=== PATIENT | female | born 1935 | race Caucasian/White ===

== ENCOUNTER 2016-12-15 17:05 | Emergency (ER) | payer OTHER ==
--- NOTE | ~2016-12-15 | EKG ---
PATIENT: ANDERS RODRIGEZ UNIT #: [id number] Ventricular Rate: 95 BPM Atrial Rate: 95 BPM P-R Interval: 118 ms QRS Duration: 82 ms Q-T Interval: 356 ms QTC Calculation(Bezet): 447 ms P Unity: 59 degrees Calculated R Unity: 62 degrees Calculated T Unity: 49 degrees Diagnosis Line: Sinus rhythm with Premature atrial complexes Diagnosis Line: Otherwise normal ECG Diagnosis Line: When compared with ECG of 17-NOV-2016 00:24, Diagnosis Line: Premature atrial complexes are now Present Diagnosis Line: Confirmed by MACHO HERNANDEZ MD ([id number]) on Diagnosis Line: 12/17/2016 4:04:54 PM INTERPRETING MD: MARY ANDRE
--- NOTE | ~2016-12-15 | CR72 ---
[facility] A Service of [facility] RADIOLOGY TEXT RESULTS PATIENT: ANDERS RODRIGEZ LOCATION: [facility] : 33 UNIT #: [id number] AGE: [address]: Ravindra Richardson MD SEX: F ORDER DR: [id number] [facility] [address] [place], [place] [address] [id number] MR#: [id number] Acc #: [id number] NAME: ANDERS RODRIGEZ. : 1935 SEX: F STUDY DATE/TIME: 12/15/2016 17:28 UNIT: [facility] ROOM: STUDY DESCRIPTION: CR Chest Single View Portable Attending Physician: Ravindra Richardson M.D. Ordering Physician: Tala Soria M.D. Primary Care Physician: Franck Hammond M.D. MEDICAL IMAGING REPORT This report is preliminary unless electronic signature is present EXAM Portable chest HISTORY Cough today. FINDINGS Mild hyperinflation of both lungs. Cardiac size and pulmonary vascularity are within normal limits. Postop changes left shoulder replacement. IMPRESSION No acute findings and no active disease. Dictated by... Manav Franco M.D. THIS IS AN ELECTRONICALLY VERIFIED REPORT Manav Franco M.D. at 12/16/2016 2:18 PM DFL/marialuisa TD: 12/16/2016 08:20 JOB #: [id number] MEDICAL IMAGING REPORT COPY
[~2016-12-15 17:05] MED LIST: ACETAMINOPHEN PO; ADVAIR 1001 DISK W/D PO; ADVAIR 250-501 EACH IH; ADVAIR 250-501 EACH INH; ADVAIR 5001 DISK W/D PO; ALBUTEROL MININEB NEB; ALBUTEROL17 G1 IH; ALBUTEROL17 GM INH; ALLEGRA ALLERG180 MG PO; ALLER-TEC10 M1 PO; ANORO ELLIPTA1 EACH INH; ASPIRIN PO; ATROVENT15 ML NS; AUGMENTIN PO; BENZONATATE PO; CERTAGEN PO; COMBIVENT U/D3 ML INH; COZAAR PO; DOXYCYCLINE HY100 M1 PO; FISH OIL 1,0001 CAP PO; FLONASE16 GM; HYZAAR 100-12.51 TAB PO; HYZAAR 100-25 T1 TAB PO; HYZAAR 100/25 T1 TAB PO; HYZAAR PO; IPRATROPIUM BR42 MCG; LEVAQUIN PO; LEVAQUIN250 MG PO; LEVAQUIN750 MG PO; LOSARTAN-HCTZ1 EAC1 PO; LUTEIN20 M1 PO; MAG OXIDE PO; MEDROL DOSEPAK4 MG DOB; MEDROL PO; MEDROL4 MG/DOSE- PO; MONTELUKAST SOD10 MG PO; MULTI VITAMIN1 EACH PO; MULTI-DAY VITAM1 TAB PO; MULTI-VITAMIN1 EAC1 PO; MULTIVITAMIN1 UDCAP PO; OYSTER CALCIUM500 MG PO; PANTOPRAZOLE SO40 MG PO; PREDNISONE PO; PREDNISONE10 MG PO; PROAIR HFA8.5 GM INH; PROTONIX PO; SINGULAIR PO; SPIRIVA RESPIMAT4 G1; SPIRIVA18 MCG INH; SPIRIVA18 MCG PO; STERAPRED5 MG/DOSE1 PO; SYMBICORT INH; VERAMYST; VIBRAMYCIN100 M1 PO; VITAMIN D 4001 UDTAB PO; VITAMIN D400 UNI2; VITAMIN PO; WELLBUTRIN PO; ZITHROMAX PO; ZYRTEC PO; [UNRECOGNIZED DRUG - OTHER] INH
[2016-12-15 18:06] LABS: BASOPHIL% 0.3 % (0-2.5); EOSINOPHIL# 0.2 X10e3 (0-0.7); EOSINOPHIL% 1.7 % (0.0-7.0); HEMOGLOBIN 12.1 gm/dL (12.0-16.0); LYMPHOCYTE# 0.9 X10e3 (1.0-3.5); LYMPHOCYTE% 8.4 % (17.0-45.0); MEAN CELL VOLUME 85.8 FL (83-96); MEAN CORPUSCULAR HGB CONC 32.6 g/dL (30-36); MEAN PLATELET VOLUME 7.7 FL (6.5-11.5); MONOCYTE# 0.8 X10e3 (0-1.0); MONOCYTE% 7.2 % (3.0-12.0); NEUTROPHIL# 8.7 X10e3 (1.5-7.1); NEUTROPHIL% 82.4 % (40-75); PLATELET COUNT 389 X10e3 (140-420); RED BLOOD COUNT 4.31 X10e (3.90-5.30); RED CELL DISTRIBUTION WIDTH 14.8 % (11.0-15.5); WHITE BLOOD COUNT 10.6 X10e3 (4.0-10.5)
[2016-12-15 18:07] LABS: DIFF IND NO
[2016-12-15 18:22] LABS: POC - CKMB 1.8 ng/mL (0.0-7.9); POC - TROPONIN <0.05 ng/mL (<=0.05)
[2016-12-15 18:23] LABS: ALBUMIN SERUM 3.6 g/dL (3.5-5.0); BILIRUBIN, DIRECT 0.1 mg/dL (0.0-0.2); BILIRUBIN,INDIRECT 0.8 mg/dL (0.0-0.9); BILIRUBIN,TOTAL 0.9 mg/dL (0.2-2.0); BUN/CREATININE RATIO 23.63; CREATININE SERUM 1.1 mg/dL (0.6-1.4); GLOM FILT RATE Estimated 50.5 mL/min (>60); POTASSIUM 3.5 mmol/L (3.5-5.1); PROTEIN TOTAL SERUM 6.9 g/dL (6.0-8.3)
[2016-12-15 19:54] LABS: URINE SOURCE CLEAN CATCH
[2016-12-15 20:00] LABS: URINE APPEARANCE CLEAR; URINE BILIRUBIN NEG (NEG); URINE BLOOD NEG (NEG); URINE COLOR YELLOW; URINE GLUCOSE NEG (NEG); URINE KETONE NEG (NEG); URINE LEUKOCYTE ESTERASE NEG (NEG); URINE NITRATE NEG (NEG); URINE PH 5.5 (5-8); URINE PROTEIN NEG (NEG); URINE SPECIFIC GRAVITY 1.018 (1.003-1.035); URINE UROBILINOGEN 0.2 MG/DL (NEG)
[2016-12-15 20:12] LABS: CULTURE INDICATED? NO
== END 2016-12-15 20:45 | disposition home or self-care (01) ==
LOC: CED 17:05
PROVIDERS: Emergency Medicine
DX: E86.0 Dehydration (principal); Z88.1 Allergy status to other antibiotic agents
CPT/HCPCS: 36415; 51702; 71010; 80048; 80076; 81003; 82150; 82553; 83690; 84484; 85025; 93005; 96361; 96374; 99283; 99284; J2405